=== PATIENT | male | born 1985 | race Caucasian/White ===

== ENCOUNTER 2017-07-08 00:17 | Emergency (ER) | payer BC ==
[~2017-07-08] VITALS: Ht 177.8 cm; Wt 70.0 kg
[2017-07-08 00:21] VITALS: TEMP 36.5; Ht 177.8 cm; Wt 70.0 kg
[2017-07-08] MEDS ORDERED: ONDANSETRON 4MG OD TAB PO ONE (00:30)
[2017-07-08 01:10] LABS: BASO % 0.4 %; BASO ABS # 0.03 K/uL (0-0.2); COMPLETE YES; EOS % 2.3 %; HEMATOCRIT 43.5 % (42-52); IG% 0.1 %; LYMPH % 38.9 %; LYMPH ABS # 2.83 K/uL (1.2-3.4); MEAN CELL VOLUME 83.7 fL (80-100); MEAN CORPUSCULAR HEMOGLOBIN 28.8 pg (25-34); MEAN CORPUSCULAR HGB CONC 34.5 g/dl (32-36); MEAN PLATELET VOLUME 9.8 fL (7.4-10.4); MONO % 6.6 %; NEUT % 51.7 %; PLATELET COUNT 240 K/uL (130-400); WHITE BLOOD COUNT 7.27 K/uL (4.8-10.8)
[2017-07-08 01:28] LABS: ALT/SGPT 33 U/L (12-78); AST/SGOT 22 U/L (15-37); BLOOD UREA NITROGEN 12 mg/dl (7-18); BUN/CREATININE RATIO 13.8 (10-20); CARBON DIOXIDE 29 mmol/L (21-32); CHLORIDE 104 mmol/L (98-107); CREATININE 0.86 mg/dl (0.60-1.40); GLUCOSE 116 mg/dl (70-99); POTASSIUM 3.7 mmol/L (3.5-5.1); SODIUM 141 mmol/L (136-145)
[2017-07-08 01:30] LABS: ALKALINE PHOSPHATASE 98 U/L (45-117)
[2017-07-08] MEDS ORDERED: MAGNESIUM CITRATE 296 ML/BTL PO ONE (01:30)
[2017-07-08] MEDS ORDERED: MULT-506 PO (01:37)
[2017-07-08 01:46] VITALS: BP 123/79; PULSE 56; O2SAT 99
--- NOTE | 2017-07-08 04:28 | EMERGENCY ROOM VISIT NOTE ---
History Report prepared by Alessandro: Mya Yi Under the Supervision of: Dr. Anna Marie Galvez M.D. First contact with patient: 00:24 Chief Complaint: ABDOMINAL PAIN Stated Complaint: UPR BODY PAIN,PAIN NEAR CHEST History of Present Illness The patient is a 32 year old male who presents to the Emergency Room with complaints of worsening abdominal pain starting an hour ago. The patient states that he started to feel pain in his upper body. He states that it started in his back and lower chest and moved to his abdomen. He reports that it came on right before he was going to go to sleep. He notes that the pain in his back is worse with deep breathing. He reports that he took Tums 30 minutes ago with no relief. He currently rates his pain as a 4/10 in severity. The patient complains of nausea. The patient notes that he cannot remember the last time he had a bowel movement, but notes he has never had issues with constipation. He notes that he did go to the gym today and lift weights. He states that he is unsure if this pain is from that. The patient denies urinary symptoms, fever, ever having pancreatitis, smoking, and recent long trips. He notes he drinks occasionally. Source of History: patient Onset: an hour ago Position: abdomen Symptom Intensity: 4/10 Timing: worsening Modifying Factors (Worsening): breathing (deep) Associated Symptoms: + chest pain, + nausea, + back pain, No fevers, No urinary symptoms Review of Systems See HPI for pertinent positives & negatives. A total of 10 systems reviewed and were otherwise negative. Past Medical & Surgical Medical Problems: (1) Shoulder dislocation, recurrent Family History No pertinent family history Social History Smoking Status: Never Smoker Alcohol Use: occasionally Marital Status: Housing Status: lives with significant other Current/Historical Medications Scheduled Multivitamin (Multivitamin), 1 TAB PO DAILY Allergies Coded Allergies: No Known Allergies (Unverified , 07/08/17) Physical Exam Vital Signs Date Time Temp Pulse Resp B/P (MAP) Pulse Ox O2 Delivery O2 Flow Rate FiO2 07/08/17 01:46 56 16 123/79 99 07/08/17 00:52 68 07/08/17 00:21 36.5 59 18 130/83 100 Room Air Physical Exam Vital signs reviewed. General: Well-appearing , in no significant distress. HEENT: No scleral icterus, PERRLA, neck supple. Atraumatic. Cardiovascular: Regular rate and rhythm, no extra sounds. Pulmonary: Clear to auscultation bilaterally, normal work of breathing. Abdomen: Soft, nontender, nondistended, positive bowel sounds. Musculoskeletal: Atraumatic, no peripheral edema. No CVA tenderness. Neurologic: Patient awake alert and oriented x 3 Skin: Warm, dry, no rash Medical Decision & Procedures ER Provider Diagnostic Interpretation: KUB X-RAY: Results were interpreted by me. Significant fecal retention. Otherwise no obstructive bowel gas pattern. Laboratory Results 07/08/17 00:50 Red Blood Count 5.20, Mean Corpuscular Volume 83.7, Mean Corpuscular Hemoglobin 28.8, Mean Corpuscular Hemoglobin Concent 34.5, Mean Platelet Volume 9.8, Neutrophils (%) (Auto) 51.7, Lymphocytes (%) (Auto) 38.9, Monocytes (%) (Auto) 6.6, Eosinophils (%) (Auto) 2.3, Basophils (%) (Auto) 0.4, Neutrophils # (Auto) 3.75, Lymphocytes # (Auto) 2.83, Monocytes # (Auto) 0.48, Eosinophils # (Auto) 0.17, Basophils # (Auto) 0.03 07/08/17 00:50 Test 07/08/17 00:50 07/08/17 01:00 White Blood Count 7.27 K/uL (4.8-10.8) Red Blood Count 5.20 M/uL (4.7-6.1) Hemoglobin 15.0 g/dL (14.0-18.0) Hematocrit 43.5 % (42-52) Mean Corpuscular Volume 83.7 fL (80-100) Mean Corpuscular Hemoglobin 28.8 pg (25-34) Mean Corpuscular Hemoglobin Concent 34.5 g/dl (32-36) Platelet Count 240 K/uL (130-400) Mean Platelet Volume 9.8 fL (7.4-10.4) Neutrophils (%) (Auto) 51.7 % Lymphocytes (%) (Auto) 38.9 % Monocytes (%) (Auto) 6.6 % Eosinophils (%) (Auto) 2.3 % Basophils (%) (Auto) 0.4 % Neutrophils # (Auto) 3.75 K/uL (1.4-6.5) Lymphocytes # (Auto) 2.83 K/uL (1.2-3.4) Monocytes # (Auto) 0.48 K/uL (0.11-0.59) Eosinophils # (Auto) 0.17 K/uL (0-0.5) Basophils # (Auto) 0.03 K/uL (0-0.2) RDW Standard Deviation 37.7 fL (36.4-46.3) RDW Coefficient of Variation 12.5 % (11.5-14.5) Immature Granulocyte % (Auto) 0.1 % Immature Granulocyte # (Auto) 0.01 K/uL (0.00-0.02) Anion Gap 8.0 mmol/L (3-11) Est Creatinine Clear Calc Drug Dose 119.8 ml/min Estimated GFR () 131.1 Estimated GFR (Non- 113.1 BUN/Creatinine Ratio 13.8 (10-20) Calcium Level 9.0 mg/dl (8.5-10.1) Total Bilirubin 0.3 mg/dl (0.2-1) Direct Bilirubin < 0.1 mg/dl (0-0.2) Aspartate Amino Transf (AST/SGOT) 22 U/L (15-37) Alanine Aminotransferase (ALT/SGPT) 33 U/L (12-78) Alkaline Phosphatase 98 U/L (45-117) Total Protein 7.8 gm/dl (6.4-8.2) Albumin 4.0 gm/dl (3.4-5.0) Lipase 217 U/L (73-393) Bedside Troponin I < 0.030 ng/ml (0-0.045) Laboratory results per my review. Medications Administered Medications (Trade) Dose Ordered Sig/Herb Route Start Time Stop Time Status Last Admin Dose Admin Ondansetron HCl (Zofran Odt) 4 mg ONE ONCE PO 07/08/17 00:30 07/08/17 00:31 DC 07/08/17 00:41 4 MG Magnesium Citrate (Citrate Of Magnesia Soln) 300 ml NOW ONCE PO 07/08/17 01:30 07/08/17 01:31 DC 07/08/17 01:41 296 ML ECG Indication: abdominal pain Rate (beats per minute): 57 Rhythm: sinus bradycardia Findings: nonspecific-ST abn (Anterior), no ectopy ED Course 0025: Past medical records reviewed. The patient was evaluated in room B4B. A complete history and physical examination was performed. 0030: Ordered Zofran Odt 4 mg PO. 0130: Ordered Magnesium Citrate 300 ml PO. 0138: Upon reevaluation, the patient appeared to have improvement of his symptoms. I discussed findings with him. He verbalized agreement of the treatment plan. The patient was discharged home. Medical Decision Etiologies such as appendicitis, diverticulitis, PUD, biliary pathology, UTI, pancreatitis, obstruction, mesenteric ischemia, aortic pathology, infections, inflammatory bowel disease, renal colic, as well as others were entertained. This patient was evaluated and appeared to be in no significant distress. Physical examination is fairly benign. Patient could not remember the last time he had a bowel movement. I do suspect the patient's symptoms are related to bowel distention. Abdominal x-ray reveals significant fecal retention. The patient was advised to take magnesium citrate one half bottle in the morning and the other half the bottle tomorrow afternoon. Laboratory work is unrevealing. Patient was discharged in care of his family and will follow-up with his physician for continued symptoms. He will return to the ER for worsening of symptoms or any medical concerns. Medication Reconcilliation Current Medication List: was personally reviewed by me Blood Pressure Screening Patient's blood pressure: Elevated blood pressure Blood pressure disposition: Elevated BP felt to be situational Impression Primary Impression: Constipation Scribe Attestation The scribe's documentation has been prepared under my direction and personally reviewed by me in its entirety. I confirm that the note above accurately reflects all work, treatment, procedures, and medical decision making performed by me. Departure Information Dispostion Home / Self-Care Referrals No Doctor, Assigned (PCP) Forms Call Back Authorization, HOME CARE DOCUMENTATION FORM, IMPORTANT VISIT INFORMATION Patient Instructions My [facility] Additional Instructions Diagnosis: Constipation Magnesium citrate one half bottle in the morning, one half bottle again in the afternoon for a bowel movement. Drink plenty of clear fluids. Increase the fiber in your diet. Follow-up with your physician if symptoms persist. Return to the ER for worsening of symptoms or any medical concerns.
--- NOTE | 2017-07-08 07:15 | DIAGNOSTIC IMAGING REPORT ---
KUB HISTORY: nausea, ? Constipation COMPARISON: None. FINDINGS: The bowel gas pattern is unremarkable. There are no dilated loops of small bowel to suggest an obstruction. No renal calculi. No ureteral calculi. Calcifications in the deep pelvis likely represent phleboliths. Moderate well-formed stool seen throughout the colon. No pneumoperitoneum or pneumatosis. IMPRESSION: Moderate well-formed stool seen throughout the colon. No evidence for bowel obstruction. Electronically signed by: Osiel Villarreal M.D. 07/08/2017 7:14 AM Dictated Date/Time: 07/08/2017 7:12 AM
== END 2017-07-08 01:48 | disposition home or self-care (01) ==
LOC: C.EDB 00:17
DX: K59.00 Constipation, unspecified (principal); R00.1 Bradycardia, unspecified

== ENCOUNTER → 2018-03-31 | Outpatient (CLI) | payer OTHER ==
[~2018-03-31] MED LIST: MULT-506 PO
== END | disposition home or self-care (01) ==
LOC: C.LAB 11:37
PROVIDERS: ATTEND Family Medicine
DX: N46.9 Male infertility, unspecified (principal)